=== PATIENT | male | born 1960 | race Caucasian/White ===

== ENCOUNTER 2020-06-27 11:10 | Emergency (ER) | payer SELFPAY ==
--- NOTE | 2020-06-27 11:31 | EDM.PDOC ---
ED HPI GENERAL MEDICAL PROBLEM - General Chief Complaint: Abdominal Pain Stated Complaint: abd pain, nausea Time Seen by Provider: 06/27/20 11:20 Source of Information: Reports: Patient History Limitations: Reports: No Limitations - History of Present Illness INITIAL COMMENTS - FREE TEXT/NARRATIVE: Patient comes in with history of RUQ pain intermittently. Recent bout of it [place] several days ago/waxing and wanes. Sometimes radiates to back. Had fried chicken strips yesterday and pain returned. Some nausea. No emesis. No diarrhea. Sometimes feels constipated/no BM today. Still has GB. No previous workup/diagnosis of GB disease. Currently no insurance and has been avoiding getting a workup due to cost. Denies significant chronic medical illness. No fevers/chills/HEENT changes/Resp changes/cough/SOB/Palpitations/epigastric or chest pain/other abdominal pain/urinary changes. Took Pepto Bismol last night and no change in symptoms. - Related Data Allergies Allergy/AdvReac Type Severity Reaction Status Date / Time No Known Allergies Allergy Verified 06/27/20 11:12 Home Meds: Home Meds . [No Known Home Meds] 06/27/20 [History] Past Medical History Gastrointestinal History: Reports: Other (See Below) (intermittent RUQ pain) Social & Family History - Tobacco Use Tobacco Use Within Last Twelve Months: Snuff/Dip - Alcohol Use Alcohol Use Frequency: Weekly - Recreational Drug Use Recreational Drug Use: No Drug Use in Last 12 Months: No ED ROS GENERAL - Review of Systems Review Of Systems: Comprehensive ROS is negative, except as noted in HPI. ED EXAM, GENERAL - Physical Exam Exam: See Below Exam Limited By: No Limitations General Appearance: Alert, WD/WN, No Apparent Distress Eye Exam: Bilateral Eye: EOMI, PERRL Ears: Hearing Grossly Normal Nose: No: Nasal Deformity, Nasal Swelling, Nasal Drainage Throat/Mouth: Normal Lips, Normal Voice, No Airway Compromise Head: Atraumatic, Normocephalic Neck: Supple, Non-Tender, Full Range of Motion Respiratory/Chest: No Respiratory Distress, Lungs Clear, Normal Breath Sounds, No Accessory Muscle Use, Chest Non-Tender Cardiovascular: Normal Peripheral Pulses, Regular Rate, Rhythm, No Murmur GI/Abdominal: Soft, Tender (mild tenderness RUQ). No: Guarding, Rigid, Rebound, Hernia, Mass (Male) Exam: Deferred Rectal (Males) Exam: Deferred Back Exam: CVA Tenderness (R) (mild) Extremities: Normal Inspection, Normal Capillary Refill Neurological: Alert, Oriented, Normal Cognition, Normal Gait, No Motor/Sensory Deficits Psychiatric: Normal Affect, Normal Mood Skin Exam: Warm, Dry, Intact, Normal Color Course - Vital Signs Last Recorded V/S: Last Vital Signs Temp 36.8 C 06/27/20 11:12 Pulse 83 06/27/20 11:12 Resp 16 06/27/20 11:12 BP 159/108 H 06/27/20 11:12 Pulse Ox 98 06/27/20 11:12 - Orders/Labs/Meds Orders: Active Orders 24 hr Category Date Time Status EKG Documentation Completion [RC] ASDIRECTED Care 06/27/20 11:30 Active Abdomen 1V Upright [CR] Stat Exams 06/27/20 11:21 Taken UA W/MICROSCOPIC [URIN] Stat Lab 06/27/20 11:33 Ordered Labs: Laboratory Tests 06/27/20 06/27/20 06/27/20 Range/Units 11:32 11:32 11:32 WBC 13.1 H (4.0-10.2) K/uL RBC 5.21 (4.33-5.41) M/uL Hgb 16.8 (13.1-16.8) g/dL Hct 46.6 (39.0-49.0) % MCV 89.4 (84.0-98.0) fL MCH 32.2 (28.2-33.3) pg MCHC 36.1 H (31.7-36.0) g/dL RDW 12.3 (11.2-14.1) % Plt Count 229 (150-350) K/uL Neut % (Auto) 82.1 H (45.0-80.0) % Lymph % (Auto) 6.9 L (10.0-50.0) % [place] % (Auto) 10.7 (2.0-14.0) % Eos % (Auto) 0.1 (0.0-5.0) % Baso % (Auto) 0.2 (0.0-2.0) % Neut # (Auto) 10.78 H (1.40-7.00) K/uL Lymph # (Auto) 0.91 (0.50-3.50) K/uL [place] # (Auto) 1.40 H (0.00-1.00) K/uL Eos # (Auto) 0.01 (0.00-0.50) K/uL Baso # (Auto) 0.02 (0.00-0.20) K/uL Sodium 136 (136-145) mmol/L Potassium 3.6 (3.5-5.1) mmol/L Chloride 100 (98-107) mmol/L Carbon Dioxide 23.5 (21.0-32.0) mmol/L BUN 12 (7-18) mg/dL Creatinine 0.90 (0.51-1.17) mg/dL Est Cr Clr Drug Dosing TNP Estimated GFR (MDRD) > 60 mL/min Glucose 136 H (70-99) mg/dL Calcium 9.5 (8.5-10.1) mg/dL Total Bilirubin 1.0 (0.2-1.0) mg/dL AST 28 (15-37) U/L ALT 36 (12-78) U/L Alkaline Phosphatase 76 (46-116) IU/L Troponin I 0.003 (0.000-0.056) ng/mL Total Protein 8.4 H (6.4-8.2) g/dL Albumin 4.8 (3.4-5.0) g/dL Amylase 30 (25-115) U/L Lipase 66 L (73-393) U/L Meds: Medications Discontinued Medications Generic Name Dose Route Start Last Admin Trade Name Freq PRN Reason Stop Dose Admin Al Hydroxide/Mg Hydroxide 30 ml 06/27/20 11:21 06/27/20 12:00 Gi Cocktail PO 06/27/20 11:22 30 ml ONETIME ONE Administration Al Hydroxide/Mg Hydroxide 30 ml 06/27/20 12:35 06/27/20 12:40 Gi Cocktail PO 06/27/20 12:36 30 ml ONETIME ONE Administration Ketorolac Tromethamine 60 mg 06/27/20 12:35 06/27/20 12:40 Toradol IM 06/27/20 12:36 60 mg ONETIME ONE Administration Ondansetron HCl 4 mg 06/27/20 11:26 06/27/20 12:00 Zofran Odt PO 06/27/20 11:27 4 mg ONETIME ONE Administration Pantoprazole Sodium 40 mg 06/27/20 12:35 06/27/20 12:44 Protonix PO 06/27/20 12:36 40 mg ONETIME ONE Administration - Re-Assessments/Exams Free Text/Narrative Re-Assessment/Exam: 06/27/20 13:47 Abdominal film and labs and including amylase and lipase overall unremarkable. Improved after GI cocktail and Zofran. Plan at this time is to have patient get RUQ US study next week for further evaluation of the gallbladder area. Recommend low fat diet/small meals. Given ER stock Zofran for PRN nausea and Tramadol for PRN pain. Patient to use the Pepcid that he has at home as package directs. To follow up in ER over weekend if symptoms worsen again. Departure - Departure Time of Disposition: 13:53 Disposition: Home, Self-Care 01 Condition: Good Clinical Impression: Right upper quadrant abdominal pain Hypertension Qualifiers: Hypertension type: unspecified Qualified Code(s): I10 - Essential (primary) hypertension - Discharge Information *PRESCRIPTION DRUG MONITORING PROGRAM REVIEWED*: Not Applicable *COPY OF PRESCRIPTION DRUG MONITORING REPORT IN PATIENT HORACIO: Not Applicable Instructions: Hypertension, Adult, Gallbladder Eating Plan Referrals: Sidra Ramos NP [Primary Care Provider] - Forms: ED Department Discharge Additional Instructions: Take Zofran one every 6-8 hours if you have nausea. Take Tramadol one every 6 hours for pain. OK to use Tylenol with the Tramadol. Watch what you eat! [place]/fatty foods can trigger gallbladder pain. Recommend ultrasound study of gallbladder area next week. Follow up with [facility] for results and planning. Your blood pressure is also elevated and recommend that you get reche cked next week. If it is still elevated you may need to start medication. Return to ER if you have sudden worsening symptoms. Sepsis Event Note (ED) - Evaluation Sepsis Screening Result: No Definite Risk - Focused Exam Vital Signs: Vital Signs Temp Pulse Resp BP Pulse Ox 06/27/20 11:12 36.8 C 83 16 159/108 H 98 - My Orders Last 24 Hours: My Active Orders 06/27/20 11:21 Abdomen 1V Upright [CR] Stat 06/27/20 11:30 EKG Documentation Completion [RC] ASDIRECTED 06/27/20 11:33 UA W/MICROSCOPIC [URIN] Stat - Assessment/Plan Last 24 Hours: My Active Orders 06/27/20 11:21 Abdomen 1V Upright [CR] Stat 06/27/20 11:30 EKG Documentation Completion [RC] ASDIRECTED 06/27/20 11:33 UA W/MICROSCOPIC [URIN] Stat
[2020-06-27 11:53] LABS: CHLORIDE,CL 100 mmol/L (98-107); SODIUM,NA 136 mmol/L (136-145)
[2020-06-27] MEDS: GI Cocktail Oral Solution 30 ML PO ONE ×2 (12:00→12:40)
[2020-06-27] MEDS: Ondansetron 4 MG Tab.DIS PO ONE (12:00)
[2020-06-27] MEDS: Ketorolac 60 MG/2 ML SDV IM ONE (12:40)
[2020-06-27] MEDS: Pantoprazole 40 MG Tab.CR PO ONE (12:44)
== END 2020-06-27 14:10 | disposition home or self-care (01) ==
LOC: LL.ED 11:10
DX: R10.11 Right upper quadrant pain (principal); I10 Essential (primary) hypertension
CPT/HCPCS: 36415; 74018; 80053; 82150; 83690; 84484; 85025; 93005; 96372; 99283; 99284-25; A9270-GY; J1885